=== PATIENT | female | born 1980 ===

== ENCOUNTER 2021-07-14 01:07 | Emergency (ER) | payer SELFPAY ==
[2021-07-14] MEDS ORDERED: MVI, Adult with Vitamin K 10 ML, Thiamine 100 MG, Folic Acid 1 MG in Lactated Ringers 1... IV ONE ×4 (01:14)
[2021-07-14] MEDS ORDERED: LORazepam 2 MG/ML SDV IM ONE (01:15)
[2021-07-14] MEDS ORDERED: LORazepam 2 MG/ML SDV IVPUSH ONE ×3 (01:28→03:38)
[2021-07-14] MEDS ORDERED: LORazepam 2 MG/ML SDV ONE (01:29)
[2021-07-14] MEDS ORDERED: Diltiazem 25 MG/5 ML SDV ONE (01:34)
[2021-07-14] MEDS ORDERED: Ondansetron 4 MG/2 ML SDV IVPUSH ONE (01:35)
[2021-07-14] MEDS ORDERED: Ondansetron 4 MG/2 ML SDV ONE (01:36)
[2021-07-14] MEDS ORDERED: Diltiazem 25 MG/5 ML SDV IVPUSH ONE (01:36)
[2021-07-14] MEDS: Sodium Chloride 0.9% 1,000 ML IV ONE ×2 (01:40)
[2021-07-14 01:58] LABS: CHLORIDE,CL 80 mmol/L (98-107); SODIUM,NA 138 mmol/L (136-145)
[2021-07-14 02:36] LABS: ANION GAP 31.9 mEq/L (7-13)
[2021-07-14 02:53] LABS: AMPHETAMINES,URINE NEGATIVE (NEGATIVE); BARBITURATES,URINE POSITIVE (NEGATIVE); BENZODIAZEPINE,URINE POSITIVE (NEGATIVE); MDMA (ECSTASY), URINE NEGATIVE (NEGATIVE); METHADONE,URINE NEGATIVE (NEGATIVE); METHAMPHETAMINES,URINE NEGATIVE (NEGATIVE); OPIATES,URINE NEGATIVE (NEGATIVE); OXYCODONE,URINE NEGATIVE (NEGATIVE); PHENCYCLIDINE,URINE NEGATIVE (NEGATIVE); TCA,URINE NEGATIVE (NEGATIVE)
[2021-07-14] MEDS ORDERED: Potassium Chloride 20 MEQ in Premix Bag 1 BAG IV ONE ×2 (02:53→10:52)
[2021-07-14] MEDS ORDERED: Lactated Ringers 1,000 ML IV ONE (02:53)
[2021-07-14 05:39] LABS: ANION GAP 16.8 mEq/L (7-13)
[2021-07-14] MEDS ORDERED: Sodium Chloride 0.9% 1,000 ML IV ONE (06:55)
[2021-07-14] MEDS ORDERED: Magnesium Sulfate/Water 2 GM in Premix Bag 1 BAG IV ONE ×2 (06:56→06:57)
[2021-07-14] MEDS ORDERED: Calcium Gluconate 10% 1 GM/10 ML SDV IVPUSH ONE ×2 (08:11→10:51)
[2021-07-14] MEDS ORDERED: Sodium Chloride 0.9% 10 ML Syringe FLUSH PRN (09:35)
[2021-07-14 10:21] LABS: ANION GAP 11.4 mEq/L (7-13)
[2021-07-14 10:41] LABS: CORONAVIRUS COVID-19 NAA NEGATIVE (NEGATIVE); RESPIRATORY SYNCYTIAL VIR NAA NEGATIVE (NEGATIVE)
[2021-07-14] MEDS ORDERED: Potassium Chloride 10 MEQ Tab.ER PO ONE (10:52)
== END 2021-07-14 12:30 ==
LOC: DL.ED 01:07
DX: F10.139 Alcohol abuse with withdrawal, unspecified (principal); E83.42 Hypomagnesemia; E87.6 Hypokalemia; E83.51 Hypocalcemia; Z85.3 Personal history of malignant neoplasm of breast; Z72.0 Tobacco use
CPT/HCPCS: 0241U; 36415; 74176; 80048; 80053; 80305-QW; 80307; 81001; 82150; 82272; 83605; 83690; 83735; 84484; 85025; 85610; 85730; 86140; 93005; 96365; 96366; 96367; 96372; 96375; 96376; 99285-25; A9270-GY; J0610; J2060; J2405; J3411; J3475; J3480; J3490; J7030; J7120